=== PATIENT | female | born 1975 | race Two or more races ===

== ENCOUNTER → 2021-12-30 | Emergency (ER) | payer OTHER ==
[~2021-12-30] VITALS: Ht 162.6 cm; Wt 65.8 kg
[~2021-12-30] MED LIST: ABILIFY20 MG PO; ATIVAN1 M1 PO; FLUOXETINE HCL60 MG PO; PROSCAR5 MG PO
== END | disposition left against medical advice (07) ==
LOC: ER 12:29
DX: Z53.21 Procedure and treatment not carried out due to patient leaving prior to being seen by health care provider (principal)